=== PATIENT | male | born 1995 | race Caucasian/White ===

== ENCOUNTER 2018-02-22 12:39 | Emergency (ER) | payer OTHER ==
[2018-02-22 12:56] VITALS: BP 120/77
[2018-02-22 13:32] LABS: BASOPHILS % (AUTO) 0.7 %; EOSINOPHILS % (AUTO) 0.4 %; HGB - HEMOGLOBIN 14.1 g/dL (14.0-18.0); LYMPHOCYTES # (AUTO) 1.1 10^3/uL (1.5-3.5); LYMPHOCYTES % (AUTO) 24.5 %; MEAN CORPUSCULAR HEMOGLOBIN 29.5 pg (27.0-31.0); MEAN CORPUSCULAR HGB CONC 34.3 g/dL (32.0-36.0); MEAN PLATELET VOLUME 10.5 fL (7.4-11.4); MONOCYTES # (AUTO) 0.3 10^3/uL (0.0-1.0); MONOCYTES % (AUTO) 7.7 %; NEUTROPHILS % (AUTO) 66.7 %; PLT - PLATELET COUNT 148 10^3/uL (130-450); RED BLOOD COUNT 4.78 10^6/uL (4.70-6.10); RED CELL DISTRIBUTION WIDTH 12.5 % (12.0-15.0); WHITE BLOOD COUNT 4.5 x10^3/uL (4.8-10.8)
[2018-02-22 13:35] LABS: ALBUMIN 5.1 g/dL (3.2-5.5); ALBUMIN/GLOBULIN RATIO 2.1 (1.0-2.2); BILIRUBIN,TOTAL 0.9 mg/dL (0.2-1.0); CALCIUM 9.4 mg/dL (8.5-10.3); TOTAL PROTEIN 7.5 g/dL (6.7-8.2)
[2018-02-22 14:00] LABS: PLATELET MORPHOLOGY 1+ LARGE PLATELETS (NORMAL)
[2018-02-22 14:01] LABS: PLATELET ESTIMATE, MANUAL NORMAL (130-450,000) (NORMAL); RBC MORPHOLOGY (MULTIPLE) NORMAL APPEARANCE (NORMAL)
--- NOTE | 2018-02-22 14:18 | XRAY Report ---
EXAM: CHEST RADIOGRAPHY EXAM DATE: 02/22/2018 02:06 PM. CLINICAL HISTORY: Chest pain radiating down left arm for 2 days. COMPARISON: None. TECHNIQUE: 1 view. FINDINGS: Lungs/Pleura: No focal opacities evident. No pleural effusion. No pneumothorax. Mediastinum: Within exam limitations, the cardiomediastinal contour is normal. Other: None. IMPRESSION: Normal single view chest. [facility] Referring Provider Line: [phone] SITE ID: [id number]
--- NOTE | 2018-02-22 14:19 | ED Physician Documentation ---
History of Present Illness - Stated complaint Stated Complaint: CHEST PX - Chief complaint Chief Complaint: General - History obtained from History obtained from: Patient, Family - History of Present Illness Timing: How many weeks ago (1) Pain level max: 3 Pain level now: 2 - Additonal information Additional information: Patient is a 22-year-old male who presents to the emergency department with a one-week history of chest pain. This is been accompanied by anxiety. Has a long history of anxiety. He states it started after drinking 2 cups of coffee and an energy drink last week. Has seen his PCP since that time. But as he was continuing to have the pain, came in for evaluation. Is described as sharp , anterior chest wall pain. Worse with palpation and movement. Nothing makes it better. Has not taken anything for the pain. There is no family history of young cardiac disease. Did have a grandparent with a heart attack in their late 60s. Patient does not smoke or drink alcohol. No drug use. Review of Systems Constitutional: denies: Fever, Chills Ears: denies: Ear pain Nose: denies: Rhinorrhea / runny nose, Congestion Throat: denies: Sore throat Cardiac: denies: Palpitations Respiratory: denies: Dyspnea, Cough, Hemoptysis, Wheezing GI: denies: Abdominal Pain, Nausea, Vomiting, Diarrhea Skin: denies: Rash Musculoskeletal: denies: Neck pain, Back pain Neurologic: denies: Headache PD PAST MEDICAL HISTORY - Past Medical History Past Medical History: No Cardiovascular: None Respiratory: None Neuro: None Endocrine/Autoimmune: None GI: None : None HEENT: None Psych: None Musculoskeletal: None Derm: None - Past Surgical History Past Surgical History: No - Present Medications Home Medications: Ambulatory Orders Medication Instructions Recorded Confirmed No Known Home Medications [No 02/22/18 02/22/18 Known Home Medications] - Allergies Allergies/Adverse Reactions: Allergies Allergy/AdvReac Type Severity Reaction Status Date / Time codeine Allergy Unknown Verified 02/22/18 12:55 - Social History Does the pt smoke?: No Smoking Status: Never smoker Does the pt drink ETOH?: No Does the pt have substance abuse?: No - Immunizations Immunizations are current?: Yes - POLST Patient has POLST: No PD ED PE NORMAL - Vitals Vital signs reviewed: Yes (HR 75) - General General: Alert and oriented X 3, No acute distress, Well developed/nourished - HEENT HEENT: PERRL, Moist mucous membranes - Neck Neck: Supple, no meningeal sign, No JVD, No bruit - Cardiac Cardiac: RRR, No murmur, No gallop, No rub, Strong equal pulses - Respiratory Respiratory: No respiratory distress, Clear bilaterally - Abdomen Abdomen: Soft, Non tender, Non distended - Back Back: No spinal TTP - Derm Derm: Warm and dry - Extremities Extremities: No edema, No calf tenderness / cord - Neuro Neuro: Alert and oriented X 3 - Psych Psych: Normal mood, Normal affect Results - Vitals Vitals: Oxygen O2 Source Room air - EKG (time done) 1246 Rate: Rate (enter#) (78) Rhythm: NSR Boyds: Normal Intervals: Normal SC QRS: Normal Ischemia: ST elevation c/w repol - Labs Labs: Laboratory Tests 02/22/18 02/22/18 02/22/18 13:12 13:12 13:12 WBC 4.5 L RBC 4.78 Hgb 14.1 Hct 41.1 L MCV 86.0 MCH 29.5 MCHC 34.3 RDW 12.5 Plt Count 148 MPV 10.5 Neut # 3.0 Lymph # 1.1 L [place] # 0.3 Eos # 0.0 Baso # 0.0 Absolute Nucleated RBC 0.00 Nucleated RBC % 0.0 Manual Slide Review Indicated Platelet Estimate NORMAL (130-450,000) Platelet Morphology 1+ LARGE PLATELETS RBC Morph Micro Appear NORMAL APPEARANCE Sodium 137 Potassium 3.6 Chloride 103 Carbon Dioxide 26 Anion Gap 8.0 BUN 15 Creatinine 1.0 Estimated GFR (MDRD) 92 Glucose 93 Calcium 9.4 Total Bilirubin 0.9 AST 22 ALT 18 Alkaline Phosphatase 58 Troponin I < 0.04 Total Protein 7.5 Albumin 5.1 Globulin 2.4 Albumin/Globulin Ratio 2.1 Lipase 29 - Rads (name of study) cxr Radiology: Prelim report reviewed, EMP read contemporaneously, See rad report ( normal) PD MEDICAL DECISION MAKING - ED course Complexity details: reviewed results, re-evaluated patient, considered differential (No ST elevation [place], no aortic dissection, no PE, no tension pneumothorax, no aortic aneurysm), d/w patient, d/w family ED course: Patient is a 22-year-old male who presents to the emergency department with atypical chest pain for the past week. Appears to be related to anxiety. No evidence of acute coronary syndrome, coronary vasospasm, pneumothorax, pulmonary embolus. No acute findings on EKG, laboratory testing or chest x- ray. We will have him follow-up with his doctor for further evaluation and care. Patient counseled regarding signs and symptoms for which I believe and urgent re-evaluation would be necessary. Patient with good understanding of and agreement to plan and is comfortable going home at this time This document was made in part using voice recognition software. While efforts are made to proofread this document, sound alike and grammatical errors may occur. Departure - Departure Disposition: 01 Home, Self Care Clinical Impression: Chest pain Qualifiers: Chest pain type: unspecified Qualified Code(s): R07.9 - Chest pain, unspecified Condition: Good Instructions: ED Chest Pain Atypical Unkn Cause Follow-Up: Tra Quezada DO [Primary Care Provider] - Within 1 week Comments: Return if you worsen. This should improve over the next few days. Discharge Date/Time: 02/22/18 14:33
== END 2018-02-22 14:33 | disposition home or self-care (01) ==
LOC: ED 12:39
DX: R07.9 Chest pain, unspecified (principal)
CPT/HCPCS: 36415; 71045; 80053; 83690; 84484; 85025; 93005; 99282; 99284

== ENCOUNTER 2020-08-02 18:29 | Outpatient (CLI) | payer OTHER ==
--- NOTE | 2020-08-02 19:50 | XRAY Report ---
PROCEDURE: Cervical Spine 2 View INDICATIONS: CHRONIC NECK PAIN TECHNIQUE: 3 view(s) of the cervical spine were acquired. COMPARISON: None. FINDINGS: Bones: No fractures or dislocations to the T1 level. The lateral masses of C1 appear intact on the odontoid view. No suspicious bony lesions. No significant spondylitic change. Soft tissues: No prevertebral soft tissue swelling. IMPRESSION: Unremarkable cervical spine plain films. Reviewed by: Yuval Conte MD on 08/02/2020 7:48 PM PDT Approved by: Yuval Conte MD on 08/02/2020 7:48 PM PDT Station ID: [id number]
== END 2020-08-02 18:30 | disposition home or self-care (01) ==
LOC: DI 18:29
PROVIDERS: ATTEND Physician Assistant Medical
DX: M54.2 Cervicalgia (principal); G89.29 Other chronic pain
CPT/HCPCS: 72040

== ENCOUNTER 2022-08-28 08:00 | Outpatient (CLI) | payer OTHER ==
--- NOTE | 2022-08-28 14:30 | XRAY Report ---
PROCEDURE: Wrist 4 View RT INDICATIONS: RIGHT WRIST FRACTURE TECHNIQUE: 4 views of the wrist were acquired. COMPARISON: Hand radiographs 08/22/2022 FINDINGS: Bones: Minimally displaced intra-articular fracture of the ulnar aspect of the hamate does not appear significantly changed. No suspicious bony lesions. Soft tissues: No suspicious soft tissue calcifications. Soft tissue edema is seen surrounding the w rist. IMPRESSION: Minimally displaced articular fracture of the hamate is redemonstrated with unchanged alignment. Reviewed by: Paulino Carson MD on 08/28/2022 2:29 PM PDT Approved by: Paulino Carson MD on 08/28/2022 2:29 PM PDT Station ID: [id number]
== END 2022-08-28 23:59 | disposition home or self-care (01) ==
LOC: DI.WOS 08:00
PROVIDERS: ATTEND Physician Assistant Surgical
DX: S62.144A Nondisplaced fracture of body of hamate [unciform] bone, right wrist, initial encounter for closed fracture (principal)

== ENCOUNTER 2022-09-29 08:00 | Outpatient (CLI) | payer OTHER ==
--- NOTE | 2022-09-29 18:37 | XRAY Report ---
PROCEDURE: Wrist 4 View RT INDICATIONS: RIGHT WRIST FRACTURE TECHNIQUE: 4 views of the wrist were acquired. COMPARISON: Right Wrist radiographs 08/28/2022 FINDINGS: Redemonstrated minimally displaced intra-articular fracture of the hamate. Alignment appears similar to before. Fracture plane is less conspicuous, possible progression of healing. No definite new fract ure identified. IMPRESSION: Similar alignment of the previously demonstrated hamate fracture. Reviewed by: Paulino Nieves MD on 09/29/2022 6:35 PM PST Approved by: Paulino Nieves MD on 09/29/2022 6:35 PM PST Station ID: [id number]
== END 2022-09-29 23:59 | disposition home or self-care (01) ==
LOC: DI.WOS 08:00
PROVIDERS: ATTEND Physician Assistant Surgical
DX: S62.144D Nondisplaced fracture of body of hamate [unciform] bone, right wrist, subsequent encounter for fracture with routine healing (principal)

== ENCOUNTER 2023-11-18 09:15 | Outpatient (CLI) | payer OTHER ==
[2023-11-18 12:50] LABS: INFLUENZA A- RESP PCR PANEL NOT DETECTED; INFLUENZA B - RESP PCR PANEL NOT DETECTED; RSV- RESP PCR PANEL NOT DETECTED; SARS-CoV-2 -RESP PCR PANEL NOT DETECTED
== END 2023-11-18 09:30 | disposition home or self-care (01) ==
LOC: LAB.N 09:15
PROVIDERS: ATTEND Physician Assistant Medical
DX: J06.9 Acute upper respiratory infection, unspecified (principal)
CPT/HCPCS: 87637